=== PATIENT | female | born 1970 | race Caucasian/White ===

== ENCOUNTER 2019-07-04 13:35 | Day surgery (SDC) | payer OTHER ==
[2019-07-03 16:00] VITALS: BMI 30.6
[~2019-07-04] VITALS: Ht 170.2 cm; Wt 88.3 kg
[2019-07-04] VITALS (15 sets, daily range): BP systolic 113–147; BP diastolic 60–83; PULSE 66–87; RESP 13–28; Ht 170.2 cm; Wt 88.3 kg
[~2019-07-04 13:35] MED LIST: BUPR100T14 PO; CEFAZOLIN 2 GM/50 ML (PMX) 50 ML IVPB ONE; FLUO40CA10 PO; LACTATED RINGER'S 1,000 ML IV SCH; LAMO150T2 PO; LEVO80CA PO
[2019-07-04] MEDS ORDERED: MIDAZOLAM 1 MG/ML 2 ML INJ ONE (16:34)
[2019-07-04] MEDS ORDERED: PROPOFOL 20 ML ONE (17:50)
[2019-07-04] MEDS ORDERED: LIDOCAINE 2% (SDV) 5 ML INJ ONE (17:50)
[2019-07-04] MEDS ORDERED: ONDANSETRON 4 MG INJ ONE (17:50)
[2019-07-04] MEDS ORDERED: CEFAZOLIN 1 GM INJ ONE (17:51)
[2019-07-04] MEDS ORDERED: ROPIVACAINE 0.5 % 30 ML VIAL ONE (17:52)
[2019-07-04] MEDS ORDERED: MEPERIDINE 100 MG INJ ONE (18:10)
[2019-07-04] MEDS ORDERED: DIPHENHYDRAMINE 50 MG INJ IV PRN (18:30)
[2019-07-04] MEDS ORDERED: HYDROmorphONE 1 MG/5 ML IV SYRINGE IV PRN ×2 (18:30)
[2019-07-04] MEDS ORDERED: METOCLOPRAMIDE 10 MG INJ IV PRN (18:30)
[2019-07-04] MEDS ORDERED: MEPERIDINE 25 MG INJ IV PRN (18:30)
[2019-07-04] MEDS ORDERED: ONDANSETRON 4 MG INJ IV PRN (18:30)
[2019-07-04] MEDS ORDERED: FENTAnyl 50 MCG/ML VIAL IV PRN (18:30)
== END 2019-07-04 19:34 | disposition home or self-care (01) ==
LOC: SDS 13:35
PROVIDERS: ATTEND Orthopaedic Surgery Hand Surgery
DX: S52.571A Other intraarticular fracture of lower end of right radius, initial encounter for closed fracture (principal); S52.601A Unspecified fracture of lower end of right ulna, initial encounter for closed fracture; X58.XXXA Exposure to other specified factors, initial encounter; G56.01 Carpal tunnel syndrome, right upper limb
CPT/HCPCS: 25280; 25609; 25652; 64721; 73110; 84703; C1713; J0690; J2175; J2250; J2405; J2795; J3010